=== PATIENT | male | born 1955 | race Caucasian/White ===

== ENCOUNTER 2018-01-17 17:11 | Emergency (ER) | payer SELFPAY ==
[2018-01-17] VITALS (7 sets, daily range): BP systolic 112–133; BP diastolic 76–80; PULSE 82–108; RESP 16–28; TEMP 99.2; O2SAT 96–99
[~2018-01-17] VITALS: Ht 180.3 cm; Wt 121.0 kg
[2018-01-17] MEDS ORDERED: TIOT1AER INH (17:27)
[2018-01-17] MEDS ORDERED: FURO40TA PO (17:27)
[2018-01-17] MEDS ORDERED: ROSU1TAB6 PO (17:27)
[2018-01-17] MEDS ORDERED: SPIR25TA PO (17:27)
[2018-01-17] MEDS ORDERED: LISI-515 PO (17:27)
[2018-01-17] MEDS ORDERED: ASPI81CH6 CHEW (17:27)
[2018-01-17] MEDS ORDERED: CARV6.252 PO (17:27)
--- NOTE | 2018-01-17 17:40 | PD ---
HPI Chief Complaint: Pain: Acute or Chronic Time Seen by Provider: 17:23 Travel History International Travel<30 days: No Contact w/Intl Traveler<30days: No Traveled to known affect area: No History of Present Illness HPI Patient is a 62-year-old male presents to emergency room with complaints of right-sided flank pain. Patient reports that he woke up at 3 AM this morning with complaints of acute onset right-sided flank pain. Patient reports that pain is nonradiating in nature, denies any nausea or vomiting with the symptoms. Patient describes pain as mild to moderate in nature. Patient reports that pain is reproducible, reports that the pain is worse with taking a deep breath. Patient denies any chest pain at this time. Patient denies any abdominal pain, denies any constipation or diarrhea. Patient denies any dysuria , urinary urgency or frequency. Patient also denies hematuria, denies history of kidney stones in the past. Patient with no fever chills, no other complaints at this time. PFSH Past Medical History Cardiac Catheterization: Yes Cardiovascular Problems: Yes High Cholesterol: Yes Congestive Heart Failure: Yes COPD: Yes Hypertension: Yes Respiratory: Yes Tetanus Vaccination: < 5 Years Influenza Vaccination: No Past Surgical History Other Surgery: Yes (Rt. shoulder ) Social History Alcohol Use: No Tobacco Use: No Substance Use: No Allergies-Medications (Allergen,Severity, Reaction): Coded Allergies: codeine (Verified Adverse Reaction, Unknown, N/V, 01/17/18) Reported Meds & Prescriptions Reported Meds & Active Scripts Active Reported Stiolto Respimat Inh (Tiotropium-Olodaterol Inh) 2.5-2.5 Mcg/Act Aero 2 Puff INH DAILY Spironolactone 25 Mg Tab 25 Mg PO DAILY Rosuvastatin (Rosuvastatin Calcium) 10 Mg Tab 10 Mg PO HS Lisinopril 20 Mg Tab 20 Mg PO DAILY Furosemide 40 Mg Tab 40 Mg PO DAILY Carvedilol 6.25 Mg Tab 6.25 Mg PO BID Aspirin Low Dose (Aspirin) 81 Mg Chew 81 Mg CHEW DAILY Review of Systems General / Constitutional: No: Fever Eyes: No: Visual changes HENT: No: Headaches Cardiovascular: No: Chest Pain or Discomfort Respiratory: No: Shortness of Breath Gastrointestinal: No: Nausea, Vomiting, Diarrhea, Abdominal Pain Genitourinary: Positive: Flank Pain (Right-sided flank pain), No: Dysuria Musculoskeletal: No: Pain Skin: No Rash Neurologic: No: Weakness Psychiatric: No: Depression Endocrine: No: Polydipsia Hematologic/Lymphatic: No: Easy Bruising Physical Exam Narrative GENERAL: Moderate distress SKIN: Focused skin assessment warm/dry. HEAD: Atraumatic. Normocephalic. EYES: Pupils equal and round. No scleral icterus. No injection or drainage. ENT: No nasal bleeding or discharge. Mucous membranes pink and moist. NECK: Trachea midline. No JVD. CARDIOVASCULAR: Regular rate and rhythm. No murmur appreciated. RESPIRATORY: No accessory muscle use. Clear to auscultation. Breath sounds equal bilaterally. GASTROINTESTINAL: Abdomen soft, non-tender, nondistended. Hepatic and splenic margins not palpable. MUSCULOSKELETAL: No obvious deformities. No clubbing. No cyanosis. No edema. Patient with right sided flank pain/reproducible pain to right flank NEUROLOGICAL: Awake and alert. No obvious cranial nerve deficits. Motor grossly within normal limits. Normal speech. PSYCHIATRIC: Appropriate mood and affect; insight and judgment normal. Data Data Last Documented VS Vital Signs Date Time Temp Pulse Resp B/P (MAP) Pulse Ox O2 Delivery O2 Flow Rate FiO2 01/17/18 20:11 18 01/17/18 18:45 92 119/76 (90) 99 Nasal Cannula 2.00 01/17/18 18:05 99.2 Orders Orders Complete Blood Count With Diff (01/17/18 17:35) Comprehensive Metabolic Panel (01/17/18 17:35) Lipase (01/17/18 17:35) Prothrombin Time / Inr (Pt) (01/17/18 17:35) Act Partial Throm Time (Ptt) (01/17/18 17:35) Urinalysis - C+S If Indicated (01/17/18 17:35) Ct Abd/Pel W/O Iv Contrast (01/17/18 17:35) Iv Access Insert/Monitor (01/17/18 17:35) Ecg Monitoring (01/17/18 17:35) Oximetry (01/17/18 17:35) NPO (01/17/18 17:35) Morphine Inj (Morphine Inj) (01/17/18 17:45) Sodium Chloride 0.9% Flush (Ns Flush) (01/17/18 17:45) Electrocardiogram (4/11/18 ) Chest, Single Ap (01/17/18 18:05) D-Dimer (01/17/18 17:50) Ketorolac Inj (Toradol Inj) (01/17/18 19:00) Ct Pulmonary Angiogram (01/17/18 19:04) Ckmb (Isoenzyme) Profile (01/17/18 17:50) Troponin I (01/17/18 17:50) CKMB (01/17/18 17:50) CKMB% (01/17/18 17:50) Iohexol 350 Inj (Omnipaque 350 Inj) (01/17/18 21:00) Labs Laboratory Tests Test 01/17/18 17:50 01/17/18 19:16 White Blood Count 12.5 TH/MM3 Red Blood Count 4.71 MIL/MM3 Hemoglobin 13.8 GM/DL Hematocrit 41.2 % Mean Corpuscular Volume 87.4 FL Mean Corpuscular Hemoglobin 29.2 PG Mean Corpuscular Hemoglobin Concent 33.4 % Red Cell Distribution Width 12.3 % Platelet Count 266 TH/MM3 Mean Platelet Volume 9.1 FL Neutrophils (%) (Auto) 71.3 % Lymphocytes (%) (Auto) 15.1 % Monocytes (%) (Auto) 10.9 % Eosinophils (%) (Auto) 1.6 % Basophils (%) (Auto) 1.1 % Neutrophils # (Auto) 8.9 TH/MM3 Lymphocytes # (Auto) 1.9 TH/MM3 Monocytes # (Auto) 1.4 TH/MM3 Eosinophils # (Auto) 0.2 TH/MM3 Basophils # (Auto) 0.1 TH/MM3 CBC Comment DIFF FINAL Differential Comment Prothrombin Time 10.0 SEC Prothromb Time International Ratio 1.0 RATIO Activated Partial Thromboplast Time 25.7 SEC D-Dimer Quantitative (PE/DVT) 0.53 MG/L FEU Blood Urea Nitrogen 31 MG/DL Creatinine 1.40 MG/DL Random Glucose 101 MG/DL Total Protein 8.3 GM/DL Albumin 4.1 GM/DL Calcium Level 9.5 MG/DL Alkaline Phosphatase 84 U/L Aspartate Amino Transf (AST/SGOT) 20 U/L Alanine Aminotransferase (ALT/SGPT) 46 U/L Total Bilirubin 0.5 MG/DL Sodium Level 136 MEQ/L Potassium Level 4.2 MEQ/L Chloride Level 102 MEQ/L Carbon Dioxide Level 27.1 MEQ/L Anion Gap 7 MEQ/L Estimat Glomerular Filtration Rate 52 ML/MIN Total Creatine Kinase 249 U/L Creatine Kinase MB 2.0 NG/ML Troponin I LESS THAN 0.02 NG/ML Lipase 168 U/L Urine Color YELLOW Urine Turbidity CLEAR Urine pH 5.5 Urine Specific [place] 1.020 Urine Protein NEG mg/dL Urine Glucose (UA) NEG mg/dL Urine Ketones TRACE mg/dL Urine Occult Blood NEG Urine Nitrite NEG Urine Bilirubin NEG Urine Urobilinogen 0.2 MG/DL Urine Leukocyte Esterase NEG Urine RBC 0-3 /hpf Urine WBC 0-2 /hpf Urine Squamous Epithelial Cells 0-5 /hpf Microscopic Urinalysis Comment CULT NOT INDICATED MDM Medical Decision Making Medical Screen Exam Complete: Yes Emergency Medical Condition: Yes Medical Record Reviewed: Yes Interpretation(s) EKG at 1750: NSR at 99bpm, lbbb (patient reports history of abnormal ekg) Vital Signs Date Time Temp Pulse Resp B/P (MAP) Pulse Ox O2 Delivery O2 Flow Rate FiO2 01/17/18 17:20 26 01/17/18 17:12 99.2 102 24 133/76 (95) 97 Differential Diagnosis Kidney stone, muscle strain, pyelonephritis, electrolyte abnormality Narrative Course Patient is a 62-year-old male presents to emergency room with complaints of acute onset right-sided flank pain which started around 3 AM this morning. During the course of the patients emergency department visit, the patients history, examination, and differential diagnosis were reviewed with the patient. The patient was placed on a property assessment monitor with oximetry and frequent blood pressure monitoring. The patient had an IV access obtained and blood work sent for analysis. The patient was initially provided IV morphine for pain control. The patients laboratory studies were reviewed and remarkable for: Laboratory Tests Test 01/17/18 17:50 White Blood Count 12.5 TH/MM3 (4.0-11.0) Red Blood Count 4.71 MIL/MM3 (4.50-5.90) Hemoglobin 13.8 GM/DL (13.0-17.0) Hematocrit 41.2 % (39.0-51.0) Mean Corpuscular Volume 87.4 FL (80.0-100.0) Mean Corpuscular Hemoglobin 29.2 PG (27.0-34.0) Mean Corpuscular Hemoglobin Concent 33.4 % (32.0-36.0) Red Cell Distribution Width 12.3 % (11.6-17.2) Platelet Count 266 TH/MM3 (150-450) Mean Platelet Volume 9.1 FL (7.0-11.0) Neutrophils (%) (Auto) 71.3 % (16.0-70.0) Lymphocytes (%) (Auto) 15.1 % (9.0-44.0) Monocytes (%) (Auto) 10.9 % (0.0-8.0) Eosinophils (%) (Auto) 1.6 % (0.0-4.0) Basophils (%) (Auto) 1.1 % (0.0-2.0) Neutrophils # (Auto) 8.9 TH/MM3 (1.8-7.7) Lymphocytes # (Auto) 1.9 TH/MM3 (1.0-4.8) Monocytes # (Auto) 1.4 TH/MM3 (0-0.9) Eosinophils # (Auto) 0.2 TH/MM3 (0-0.4) Basophils # (Auto) 0.1 TH/MM3 (0-0.2) CBC Comment DIFF FINAL Differential Comment Prothrombin Time 10.0 SEC (9.8-11.6) Prothromb Time International Ratio 1.0 RATIO Activated Partial Thromboplast Time 25.7 SEC (24.3-30.1) Blood Urea Nitrogen 31 MG/DL (7-18) Creatinine 1.40 MG/DL (0.60-1.30) Random Glucose 101 MG/DL (74-106) Total Protein 8.3 GM/DL (6.4-8.2) Albumin 4.1 GM/DL (3.4-5.0) Calcium Level 9.5 MG/DL (8.5-10.1) Alkaline Phosphatase 84 U/L (45-117) Aspartate Amino Transf (AST/SGOT) 20 U/L (15-37) Alanine Aminotransferase (ALT/SGPT) 46 U/L (12-78) Total Bilirubin 0.5 MG/DL (0.2-1.0) Sodium Level 136 MEQ/L (136-145) Potassium Level 4.2 MEQ/L (3.5-5.1) Chloride Level 102 MEQ/L (98-107) Carbon Dioxide Level 27.1 MEQ/L (21.0-32.0) Anion Gap 7 MEQ/L (5-15) Estimat Glomerular Filtration Rate 52 ML/MIN (>89) Lipase 168 U/L (73-393) Radiology studies were reviewed and remarkable for: Last Impressions Chest X-Ray 01/17/181804 Signed Impressions: Service Date/Time: Wednesday, January 17, 2018 18:20 - CONCLUSION: No acute disease. Antione Alatorre MD Abdomen/Pelvis CT 01/17/181734 Signed Impressions: Service Date/Time: Wednesday, January 17, 2018 18:09 - CONCLUSION: 1. No acute findings. Negative for renal calculi or obstructive uropathy. Mild constipation. Mildly distended stomach. Antione Alatorre MD Ct of abdomen and pelvis with no acute findings. D.Dimer ordered as patient does have recent travels as he is here on vacation. Patient's d-dimer is positive, patient with recent travels as he is here on vacation. Patient presents with right-sided flank pain but reports that pain is worse with deep inspiration. CT ordered to rule out PE. I reviewed all labs and all studies with the patient in detail including all incidental findings, patient is agreeable to PE study. Patient reports that he is feeling much better at this time after IV morphine and IV Toradol was given to him. Was called to bedside as patient reports that pain has moved to the front of his abdomen and is more severe than before and he is more sob. Patient does have history of CHF, low EF, htn, hyperlipidemia. CE added. CTA pending to rule out PE Last Impressions CT Angiography 01/17/[id number] Signed Impressions: Service Date/Time: Wednesday, January 17, 2018 20:45 - CONCLUSION: 1. Negative for pulmonary embolus. Mild basilar atelectasis. No effusions or consolidation. Antione Alatorre MD Chest X-Ray 01/17/181804 Signed Impressions: Service Date/Time: Wednesday, January 17, 2018 18:20 - CONCLUSION: No acute disease. Antione Alatorre MD Abdomen/Pelvis CT 01/17/[id number] Signed Impressions: Service Date/Time: Wednesday, January 17, 2018 18:09 - CONCLUSION: 1. No acute findings. Negative for renal calculi or obstructive uropathy. Mild constipation. Mildly distended stomach. Antione Alatorre MD Patient reevaluated, patient feeling much better at this time. Abdomen is soft , nontender nondistended, no peritoneal signs. I reviewed all labs and also with patient in detail including ultrasound findings, discussed with him that he may have flank pain and abdominal pain secondary to constipation versus muscle strain. I am unsure the etiology of his shortness of breath, patient evidently denies any chest pain at this time and his pain has been right flank to lower abdomen. I reviewed with patient signs and symptoms of when to return to the emergency room. 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 Procedures Procedure Narrative US Guided ENGINEERING TECHNOLOGIST unable to obtain IV access. Using ultrasound guidance, a 20-gauge IV line was placed to the left AC Diagnosis Primary Impression: Flank pain Patient Instructions: Narcotic given in the ED, General Instructions Additional Instructions: Please provide patient with a copy of their lab work and studies at discharge* * Please follow up with your primary care doctor in 2-3 days Return to the ER if symptoms worsen or progress Return to the ER as needed Disposition: 01 DISCHARGE HOME Condition: Stable Saniya Cespedes DO Jan 17, 2018 17:40
[2018-01-17] MEDS ORDERED: MORPHINE SULFATE 4 MG/ML INJ IV PUSH ONE (17:45)
[2018-01-17] MEDS ORDERED: SODIUM CHLORIDE 0.9% FLUSH 10 ML FLUSH IV FLUSH PRN (17:45)
[2018-01-17 17:57] LABS: AUTOMATED NEUTROPHIL # 8.9 TH/MM3 (1.8-7.7); BASOPHIL # 0.1 TH/MM3 (0-0.2); BASOPHIL % 1.1 % (0.0-2.0); EOSINOPHIL # 0.2 TH/MM3 (0-0.4); EOSINOPHIL % 1.6 % (0.0-4.0); HEMATOCRIT 41.2 % (39.0-51.0); HEMOGLOBIN 13.8 GM/DL (13.0-17.0); LYMPH % 15.1 % (9.0-44.0); LYMPHOCYTE # 1.9 TH/MM3 (1.0-4.8); MEAN CELL VOLUME 87.4 FL (80.0-100.0); MEAN CORPUSCULAR HEMOGLOBIN 29.2 PG (27.0-34.0); MEAN CORPUSCULAR HGB CONC 33.4 % (32.0-36.0); MEAN PLATELET VOLUME 9.1 FL (7.0-11.0); MONO % 10.9 % (0.0-8.0); MONOCYTE # 1.4 TH/MM3 (0-0.9); NEUT % 71.3 % (16.0-70.0); PLATELET COUNT 266 TH/MM3 (150-450); RED BLOOD COUNT 4.71 MIL/MM3 (4.50-5.90); RED CELL DISTRIBUTION WIDTH 12.3 % (11.6-17.2); WHITE BLOOD COUNT 12.5 TH/MM3 (4.0-11.0)
[2018-01-17 18:11] LABS: CHLORIDE 102 MEQ/L (98-107); SODIUM (NA) 136 MEQ/L (136-145)
[2018-01-17 18:15] LABS: ALBUMIN 4.1 GM/DL (3.4-5.0); BICARBONATE 27.1 MEQ/L (21.0-32.0); BLOOD UREA NITROGEN 31 MG/DL (7-18); CALCIUM 9.5 MG/DL (8.5-10.1); GLUCOSE,RANDOM 101 MG/DL (74-106)
[2018-01-17 18:18] LABS: ALT (GPT) 46 U/L (12-78); AST (GOT) 20 U/L (15-37); GLOMERULAR FILTRATION RATE 52 ML/MIN (>89)
[2018-01-17 18:19] LABS: TOTAL BILIRUBIN ADULT 0.5 MG/DL (0.2-1.0); TOTAL PROTEIN 8.3 GM/DL (6.4-8.2)
[2018-01-17 18:21] LABS: ALKALINE PHOSPHATASE 84 U/L (45-117)
--- NOTE | 2018-01-17 18:41 | RADRPT ---
EXAM DATE/TIME: 01/17/2018 18:20 [facility] COMPARISON: No previous studies available for comparison. INDICATIONS : Short of breath. MEDICAL HISTORY : Chronic obstructive pulmonary disease. SURGICAL HISTORY : None. ENCOUNTER: Initial ACUITY: 1 day PAIN SCORE: 0/10 LOCATION: Bilateral chest FINDINGS: A single view of the chest demonstrates the lungs to be symmetrically aerated without evidence of mas s, infiltrate or effusion. The cardiomediastinal contours are unremarkable. Osseous structures are intact. CONCLUSION: No acute disease. Antione Alatorre MD on January 17, 2018 at 18:38 Board Certified Radiologist. This report was verified electronically.
--- NOTE | 2018-01-17 18:41 | RADRPT ---
EXAM DATE/TIME: 01/17/2018 18:09 [facility] COMPARISON: No previous studies available for comparison. INDICATIONS : Right flank pain today. ORAL CONTRAST: No oral contrast ingested. RADIATION DOSE: 24.17 CTDIvol (mGy) ; Patient body habitus MEDICAL HISTORY : Congestive heart failure. Chronic obstructive pulmonary disease. SURGICAL HISTORY : cardiac catheterization ENCOUNTER: Initial ACUITY: 1 day PAIN SCALE: 8/10 LOCATION: Right flank TECHNIQUE: Volumetric scanning of the abdomen and pelvis was performed. Using automated exposure control and ad justment of the mA and/or kV according to patient size, radiation dose was kept as low as reasonably achievable to obtain optimal diagnostic quality images. DICOM format image data is available electro nically for review and comparison. FINDINGS: Lung bases demonstrate mild atelectasis. Small lesion near dome of liver probably represents a small 1 cm cyst. Spleen, adrenals, kidneys and pancreas demonstrate no acute findings. No calcified gallstones or biliary ductal dilatation. There i s no hydronephrosis or ureteral bladder calculi identified. The appendix is normal. Mild constipation. Prostate mildly enlarged. CONCLUSION: 1. No acute findings. Negative for renal calculi or obstructive uropathy. Mild constipation. Mildly d istended stomach. Antione Alatorre MD on January 17, 2018 at 18:33 Board Certified Radiologist. This report was verified electronically.
[2018-01-17 18:57] LABS: D-DIMER 0.53 MG/L FEU (0.00-0.50)
[2018-01-17] MEDS ORDERED: KETOROLAC TROMETHAMINE 30 MG/ML (IVP) VIAL IV PUSH ONE (19:00)
[2018-01-17 19:29] LABS: BILIRUBIN, URINE NEG (NEG); BLOOD, URINE NEG (NEG); GLUCOSE,URINE NEG (NEG); KETONE, URINE TRACE mg/dL (NEG); NITRITE,URINE NEG (NEG); PH, URINE 5.5 (5.0-8.5); URINE COLOR YELLOW (YELLW/STRAW); URINE LEUKOCYTE ESTERASE NEG (NEG)
[2018-01-17 19:47] LABS: RBC, URINE 0-3 /hpf (0-3); SQUAMOUS EPITHELIAL CELL URINE 0-5 /hpf (0-5); WBC, URINE 0-2 /hpf (0-5)
[2018-01-17 20:10] LABS: TROPONIN I LESS THAN 0.02 NG/ML (0.02-0.05)
[2018-01-17] MEDS ORDERED: IOHEXOL 350 MG/ML 10 ML VIAL (for RAD DIAG) IVCONTRAST ONE (21:00)
--- NOTE | 2018-01-17 21:21 | RADRPT ---
EXAM DATE/TIME: 01/17/2018 20:45 [facility] COMPARISON: No previous studies available for comparison. INDICATIONS : Shortness of breath. IV CONTRAST: 70 cc Omnipaque 350 (iohexol) IV RADIATION DOSE: 21.10 CTDIvol (mGy) ; Patient body habitus MEDICAL HISTORY : Chronic obstructive pulmonary disease. Congestive heart failure. Hypertension. SURGICAL HISTORY : cardiac catheterization ENCOUNTER: Initial ACUITY: 1 day PAIN SCALE: 0/10 LOCATION: Bilateral chest TECHNIQUE: Volumetric scanning of the chest was performed using a pulmonary embolism protocol MIP images were re constructed. Using automated exposure control and adjustment of the mA and/or kV according to patien t size, radiation dose was kept as low as reasonably achievable to obtain optimal diagnostic quality images. DICOM format image data is available electronically for review and comparison. Follow-up recommendations for detected pulmonary nodules are based at a minimum on nodule size and pa tient risk factors according to Fleischner Society Guidelines. FINDINGS: There is mild dependent atelectasis and scarring of the lungs. No pleural or pericardial effusion. Th ere is no hilar, mediastinal or axillary adenopathy. No acute findings in the upper abdomen. Small hepatic cysts. CONCLUSION: 1. Negative for pulmonary embolus. Mild basilar atelectasis. No effusions or consolidation. Antione Alatorre MD on January 17, 2018 at 21:14 Board Certified Radiologist. This report was verified electronically.
[2018-01-18] MEDS ORDERED: PERC7.5T13 PO (06:39)
[2018-01-18] MEDS ORDERED: CYCL10TA PO (06:44)
--- NOTE | 2018-01-18 18:44 | EKG ---
Date Performed: 01/17/2018 Time Performed: 17:50:58 PTAGE: 62 years EKG: Sinus rhythm LEFT BUNDLE BRANCH BLOCK ABNORMAL ECG NO PREVIOUS TRACING DOCTOR: Ad Boyle Interpretating Date/Time 01/18/2018 18:41:39
== END 2018-01-17 22:07 | disposition home or self-care (01) ==
LOC: PHED 17:11
DX: R10.9 Unspecified abdominal pain (principal); K59.00 Constipation, unspecified; J98.11 Atelectasis; R06.02 Shortness of breath; I44.7 Left bundle-branch block, unspecified; R94.31 Abnormal electrocardiogram [ECG] [EKG]; I11.0 Hypertensive heart disease with heart failure; I50.9 Heart failure, unspecified; J44.9 Chronic obstructive pulmonary disease, unspecified
CPT/HCPCS: 36000; 71045; 71275; 74176; 80053; 81001; 82550; 82552; 83690; 84484; 85025; 85379; 85610; 85730; 93005; 96374; 96375; 99285; J1885; J2270; Q9967

== ENCOUNTER 2018-01-18 05:37 | Emergency (ER) | payer SELFPAY ==
[~2018-01-18] VITALS: Ht 177.8 cm; Wt 120.2 kg
[~2018-01-18 05:37] MED LIST: ASPI81CH6 CHEW; CARV6.252 PO; FURO40TA PO; LISI-515 PO; ROSU1TAB6 PO; SPIR25TA PO; TIOT1AER INH
[2018-01-18 05:43] VITALS: BP 137/76; PULSE 110; O2SAT 96
[2018-01-18] MEDS ORDERED: ORPHENADRINE INJ 60 MG/2 ML AMP IM ONE (05:45)
[2018-01-18] MEDS ORDERED: KETOROLAC TROMETHAMINE 60 MG/2 ML (IM) VIAL IM ONE (05:45)
[2018-01-18] MEDS ORDERED: HYDROmorphone HCL PF 2 MG/ML VIAL IM ONE ×2 (05:45→06:30)
--- NOTE | 2018-01-18 06:10 | PD ---
HPI Chief Complaint: Back/ Neck Pain or Injury Time Seen by Provider: 05:45 Travel History International Travel<30 days: No Contact w/Intl Traveler<30days: No Traveled to known affect area: No History of Present Illness HPI The patient is a 62-year-old male who was in the emergency department for a prolonged period yesterday regarding his right sided flank pain. He states he woke up at 3 AM yesterday morning with this pain which is nonradiating and not associated with any nausea, vomiting, bladder or bowel dysfunction. The patient comes in tonight with the same pain, a 10/10 and sharp in nature. He denies any nausea or vomiting. The patient denies any abdominal pain, constipation or diarrhea. In the emergency department he had a CT angiogram which was negative for pulmonary embolus a chest x-ray and a CT abdomen pelvis which was negative for renal calculi or obstructive uropathy and only showed mild constipation and mildly distended stomach. The chest x-ray showed no acute disease. The patient points to the right lumbosacral area where the pain is an this pain can be reproduced by pressure on this area. He did not receive any pain or muscle relaxant prescriptions to take home. He did get morphine here in the emergency department. He denies any trauma. There is no radiation of the pain. PFSH Past Medical History Cardiac Catheterization: Yes Cardiovascular Problems: Yes High Cholesterol: Yes Congestive Heart Failure: Yes COPD: Yes Hypertension: Yes Respiratory: Yes Tetanus Vaccination: < 5 Years Influenza Vaccination: No Past Surgical History Other Surgery: Yes (Rt. shoulder ) Social History Alcohol Use: No Tobacco Use: No Substance Use: No Allergies-Medications (Allergen,Severity, Reaction): Coded Allergies: codeine (Verified Adverse Reaction, Unknown, N/V, 01/17/18) Reported Meds & Prescriptions Reported Meds & Active Scripts Active Reported Stiolto Respimat Inh (Tiotropium-Olodaterol Inh) 2.5-2.5 Mcg/Act Aero 2 Puff INH DAILY Spironolactone 25 Mg Tab 25 Mg PO DAILY Rosuvastatin (Rosuvastatin Calcium) 10 Mg Tab 10 Mg PO HS Lisinopril 20 Mg Tab 20 Mg PO DAILY Furosemide 40 Mg Tab 40 Mg PO DAILY Carvedilol 6.25 Mg Tab 6.25 Mg PO BID Aspirin Low Dose (Aspirin) 81 Mg Chew 81 Mg CHEW DAILY Review of Systems Except as stated in HPI: all other systems reviewed are Neg Physical Exam Narrative GENERAL: The patient is alert, oriented 3 in moderate to severe distress with his low back pain. He refuses to lie down and stands up because this is the only way he can take the pain. Vital signs show a pulse rate of 110 but the rest of the vital signs are normal. SKIN: Focused skin assessment warm/dry. HEAD: Atraumatic. Normocephalic. EYES: Pupils equal and round. No scleral icterus. No injection or drainage. ENT: No nasal bleeding or discharge. Mucous membranes pink and moist. NECK: Trachea midline. No JVD. CARDIOVASCULAR: Regular rate and rhythm. No murmur appreciated. RESPIRATORY: No accessory muscle use. Clear to auscultation. Breath sounds equal bilaterally. GASTROINTESTINAL: Abdomen soft, non-tender, nondistended. Hepatic and splenic margins not palpable. MUSCULOSKELETAL: No obvious deformities. No clubbing. No cyanosis. No edema. I can completely reproduce the pain by pressing to the right of the lumbar spine around L1 through L3 area diffusely. Straight leg raising is normal NEUROLOGICAL: Awake and alert. No obvious cranial nerve deficits. Motor grossly within normal limits. Normal speech. PSYCHIATRIC: Appropriate mood and affect; insight and judgment normal. Data Data Last Documented VS Vital Signs Date Time Temp Pulse Resp B/P (MAP) Pulse Ox O2 Delivery O2 Flow Rate FiO2 01/18/18 05:43 110 137/76 (96) 96 Orders Orders Ketorolac Inj (Toradol Inj) (01/18/18 05:45) Orphenadrine Inj (Norflex Inj) (01/18/18 05:45) Hydromorphone Pf Inj (Dilaudid Pf Inj) (01/18/18 05:45) Ct Lumb Spine W/O Contrast (01/18/18 05:54) Hydromorphone Pf Inj (Dilaudid Pf Inj) (01/18/18 06:30) MDM Medical Decision Making Medical Screen Exam Complete: Yes Emergency Medical Condition: Yes Medical Record Reviewed: Yes Interpretation(s) The CT scan of the lumbar spine reconfigured from his abdominal CT shows mild broad-based disc bulges at L3-4 and L4-5 levels without canal stenosis. Differential Diagnosis Acute lumbosacral strain, lumbar spine fracture-unlikely, herniated nucleus pulposus Narrative Course At 30 minutes after the 1 mg Dilaudid shot with Norflex and Toradol the patient felt no relief of pain. The patient will get 2 mg IM of Dilaudid. Diagnosis Primary Impression: Acute lumbar myofascial strain Additional Instructions: When you get back to [place], see your primary care physician as soon as possible. It may be a good idea to call him from down here to set up an appointment. As we discussed, do not drink alcohol or drive on the Percocet. As we discussed, if he use a heating pad turned on its lowest setting and interpose a towel between your skin and the pad to avoid hanson. The Flexeril is taken 1 tablet 3 times daily and it will make you sleepy, that is its most common side effect. Med/Other Pt SpecificInfo: Prescription(s) given Scripts Cyclobenzaprine (Flexeril) 10 Mg Tab 10 MG PO TID for Muscle Spasm, #45 TAB 0 Refills Prov: Jayro Sorenson MD 01/18/18 Oxycodone-Acetaminophen (Percocet) 7.5-325 mg Tab 1 TAB PO Q4H Y for PAIN, #21 TAB 0 Refills Prov: Jayro Sorenson MD 01/18/18 Disposition: 01 DISCHARGE HOME Condition: Stable Jayro Sorenson MD Jan 18, 2018 06:10
--- NOTE | 2018-01-18 06:24 | RADRPT ---
EXAM DATE/TIME: 01/17/2018 18:09 [facility] COMPARISON: No previous studies available for comparison. INDICATIONS : Right flank pain. RADIATION DOSE: ; Reconstructed from previous dataset, no dose MEDICAL HISTORY : Congestive hearrt failure. Chronic obstructive pulmonary disease. SURGICAL HISTORY : Cardiac catherization. ENCOUNTER: Initial ACUITY: 1 day PAIN SCALE: 8/10 LOCATION: Right flank TECHNIQUE: Volumetric scanning of the lumbar spine was performed. Multiplanar reconstructions in the sagittal, coronal and oblique axial planes were performed. Using automated exposure control and adjustment of the mA and/or kV according to patient size, radiation dose was kept as low as reasonably achievable t o obtain optimal diagnostic quality images. DICOM format image data is available electronically for review and comparison. FINDINGS: VERTEBRAE: Normal vertebral body height. Degenerative disc disease L3-4. Small anterior endplate osteophytes at multiple levels. ALIGNMENT: No evidence of subluxation. T12-L1: The thecal sac has a normal diameter. No evidence of disc bulge or protrusion. The neural foramina are patent bilaterally. L1-L2: The thecal sac has a normal diameter. No evidence of disc bulge or protrusion. The neural foramina are patent bilaterally. L2-L3: The thecal sac has a normal diameter. No evidence of disc bulge or protrusion. The neural foramina are patent bilaterally. L3-L4: Mild broad-based disc bulge without canal stenosis. Mild facet arthropathy. The neural foramina are patent bilaterally. L4-L5: Mild broad-based disc bulge without canal stenosis. Mild facet arthropathy. Mild neural foraminal jenaine rowing bilaterally. L5-S1: The thecal sac has a normal diameter. No evidence of disc bulge or protrusion. The neural foramina are patent bilaterally. CONCLUSION: 1. Mild broad-based disc bulges L3-4 and L4-5 levels without canal stenosis. Justino Gallardo MD on January 18, 2018 at 6:20 Board Certified Radiologist. This report was verified electronically.
[2018-01-18 06:39] VITALS: PULSE 92; RESP 18; O2SAT 96
[2018-01-18] MEDS ORDERED: PERC7.5T13 PO (06:39)
[2018-01-18] MEDS ORDERED: CYCL10TA PO (06:44)
== END 2018-01-18 07:11 | disposition home or self-care (01) ==
LOC: PHED 05:37
DX: S39.012A Strain of muscle, fascia and tendon of lower back, initial encounter (principal); X58.XXXA Exposure to other specified factors, initial encounter; E78.00 Pure hypercholesterolemia, unspecified; I11.0 Hypertensive heart disease with heart failure; I50.9 Heart failure, unspecified; J44.9 Chronic obstructive pulmonary disease, unspecified
CPT/HCPCS: 72131; 96372; 99283; J1170; J1885; J2360